=== PATIENT | male | born 1975 ===

== ENCOUNTER 2021-03-05 13:05 | Inpatient (IN) | payer MEDICAID ==
[2021-03-05] MEDS: traZODone 50 MG TAB PO SCH (21:51)
[2021-03-05] MEDS ORDERED: DIVALPROEX DR 500 MG TAB PO SCH (22:00)
[2021-03-06 07:26] LABS: Basophils # (Auto) 0.1 K/mm3 (0.0-0.1); Basophils % (Auto) 0.6 % (0.0-1.8); Eosinophils # (Auto) 0.2 K/mm3 (0.0-0.4); Eosinophils % (Auto) 2.1 % (0.0-4.3); Hematocrit 42.8 % (35.5-45.6); Hemoglobin 14.4 gm/dl (11.8-15.2); Lymphocytes # (Auto) 1.8 K/mm3 (1.2-5.4); Lymphocytes % (Auto) 19.7 % (13.4-35.0); Mean Corpuscular HGB Conc 34 % (32-34); Mean Corpuscular Volume 92 fl (84-94); Monocytes # (Auto) 0.7 K/mm3 (0.0-0.8); Monocytes % (Auto) 7.5 % (0.0-7.3); Platelet Count 332 K/mm3 (140-440); Red Blood Count 4.66 M/mm3 (3.65-5.03); Red Cell Distribution Width 15.2 % (13.2-15.2)
[2021-03-06 07:40] LABS: Alanine Aminotransferase 12 units/L (7-56); Albumin 3.7 g/dL (3.9-5); Blood Urea Nitrogen 14 mg/dL (9-20); Calcium 9.1 mg/dL (8.4-10.2); Chol/HDL Ratio 2.86 %; HDL Cholesterol 45 mg/dL (40-59); Hemolysis Index 10; LDL Cholesterol,Direct 72 mg/dL (50-130)
[2021-03-06 07:41] LABS: Hepatitis B Surface Antigen Non-Reactive (Negative); Hepatitis C Virus Antibody Non-Reactive (NonReactive)
[2021-03-06 07:45] LABS: BUN/Creatinine Ratio 20
--- NOTE | 2021-03-06 07:51 | History and Physical Report ---
GP History & Physical - History of Present Illness Date of admission: 03/05/21 Date of Examination: 03/06/21 Reason for Admission: Danger to self Chief Complaint: Bizarre Behavior History of Present Illness: The Patient is a 45 year old male with a history of schizophrenia, Bipolar, Depression, and Anxiety who was admitted from [facility] for bizarre behavior. Per ED note: " family states patient has been acting different and talking out of his head. They told EMS that he reported to the [employer] for duty and he is not in the ." In my interview with patient, patient is difficult to understand; he is incoherent and unable to answer questions. PAST PSYCHIATRIC HISTORY Diagnoses: schizophrenia, Bipolar, Depression, and Anxiety Suicide attempts or Self-harm behavior: None reported Prior psychiatric hospitalizations: Unable to assess Substance Abuse history: Unable to assess Previous psychiatric medications tried: Depakote, Zyprexa Outpatient treatment: Unable to assess PAST MEDICAL HISTORY: Knee Surgery Family Psychiatric History: Unknown SOCIAL HISTORY Marital Status: Uknown Living Arrangements: Unknown Employment Status: Unknown Access to guns/weapons: None reported Education: 9th grade History of Abuse: None reported Legal History: None reported REVIEW OF SYSTEMS Constitutional: Negative for weight loss ENT: Negative for stridor Respiratory: Negative for cough or hemoptysis All other systems reviewed and are negative MENTAL STATUS EXAMINATION General Appearance and Behavior: Age appropriate, unkempt, wearing appropriate clothes, poor eye contact Cooperation: guarded Mood: Unable to assess Affect and affective range: Unable to assess Thought Process: Unable to assess Thought Content: Not suicidal Speech: normal tone and pace, low Suicidal Ideation: Denies SI Homicidal Ideation: Denies Hallucinations: Unable to assess Delusions: Unable to assess Impulse Control: Questionable Insight and Judgment: poor insight and judgment, Memory: Unable to assess Attention: Normal Orientation: Alert, oriented to self Assessment (1)Depression Current Visit: Yes Status: Acute Treatment Plan Patient admitted for inpatient psychiatric evaluation, medication adjustment and close monitoring The patient's behavior, mood, sleep and appetite will be closely monitored. Patient enrolled in individual and group therapeutic sessions and encouraged to attend. Patient provided with a safe and structured environment. Patient's physical health needs will be addressed by the Hospitalist. Hospitalist Consulted Labs including CBC, CMP, Lipid profile and Hemoglobin A1C levels ordered for baseline reference Social Assessment will be completed and the [employer] will work with patient and family to ensure a suitable and safe disposition Medication adjustment will be made as clinically indicated Restarted home medications Usual Wellness Presybeterian/Preservation: - Start Trazodone 50 mg po QHS & 50 mg po QHS PRN between 10 PM & 2 AM for insomnia - Start Melatonin 5 mg po QHS to promote circadian rhythm The patient agreed on the treatment plan, understood the risk, benefit, alternative treatment, potential consequence of no treatment, and gave informed consent. Initial Certification I certify that the inpatient psychiatric services are required for treatment that could reasonably be expected to improve the patient's condition. Estimated days: 7 Post hospital care: primary care provider, psychiatric provider Case staffed with Dr. Francisco Legal Status: Voluntary Reaction to Hospitalization: Accepting Legal Status: Voluntary Reaction to Hospitalization: Accepting Medications and Allergies Legal Status: Voluntary Reaction to Hospitalization: Accepting Medications and Allergies Allergies Allergy/AdvReac Type Severity Reaction Status Date / Time No Known Allergies Allergy Verified 03/06/21 00:10 Home Medications Medication Instructions Recorded Confirmed Last Taken Type Divalproex ER [DepaKOTE ER] 500 mg PO BID 03/05/21 03/05/21 Unknown History OLANzapine [ZyPREXA] 10 mg PO QHS 03/05/21 03/05/21 Unknown History Quetiapine Fumarate [SEROquel] 300 mg PO BID 03/06/21 03/06/21 Unknown History Active Meds: Active Medications Divalproex Sodium (Divalproex Dr 500 Mg Tab) 500 mg PO BID [facility] Last Admin: 03/05/21 21:51 Dose: 500 mg Documented by: Olanzapine (Olanzapine 10 Mg Tab) 10 mg PO [facility] Last Admin: 03/05/21 21:51 Dose: 10 mg Documented by: Trazodone HCl (Trazodone 50 Mg Tab) 50 mg PO QHS [facility] Last Admin: 03/05/21 21:51 Dose: 50 mg Documented by: Results - Results Labs/Vitals: Last Vital Signs Temp 97.5 F L 03/05/21 22:00 Pulse 89 03/05/21 22:00 Resp 18 03/05/21 22:00 BP 126/72 03/05/21 22:00 Pulse Ox 96 03/05/21 22:00 Physical Examination - Constitutional Vitals: Vital Signs Temp Pulse Resp BP Pulse Ox 97.5 F L 89 18 126/72 96 03/05/21 22:00 03/05/21 22:00 03/05/21 22:00 03/05/21 22:00 03/05/21 22:00 Temperature -Last 24 Hours Temperature 97.5 F Mental Status Exam - Vital signs Last Vital Signs Temp 97.5 F L 03/05/21 22:00 Pulse 89 03/05/21 22:00 Resp 18 03/05/21 22:00 BP 126/72 03/05/21 22:00 Pulse Ox 96 03/05/21 22:00 Physician Certification - Certification Statement Physician Certification Statement: This is an acknowledgement statement that HAWA COOK is a 45 year old M who requires inpatient psychiatric admission for treatment which could reasonably be expected to improve the patient's condition for Estimated period of time patient will need to remain in the hospital: [ ] Plan for post-hospital care: [ ]
[2021-03-06] MEDS: DIVALPROEX ER 500 MG TAB PO SCH ×2 (09:58→21:02)
[2021-03-06] MEDS ORDERED: LORazepam 1 MG TAB PO ONE (20:00)
[2021-03-06] MEDS: traZODone 50 MG TAB PO SCH (21:03)
--- NOTE | 2021-03-07 08:53 | Progress Note ---
Subjective Date of service: 03/07/21 Subjective Comment: 03/07/2021: I interviewed the patient this morning. Medical records reviewed and patient's progress was discussed with unit staff. Nursing staff reports that patient " Last evening the patient presented as psychotic. He would yell loudly and hold his arms and hands up into the air. He would be talking to himself. LANDSCAPE SUPERVISOR was called and pt was given one time Ativan 1 mg po. It assisted pt in calming further. He denies si/hi. His appetite is good. Pt would at times pound on the diaz with his fists but was never aggressive to anyone else. Overnight patient rested quietly. He slept 8 hours. Will continue to monitor patient for safety." In my interview with the patient this morning, the patient was seen in the activity room eating breakfast. He reports mood as "Alright". Appetite is good. Sleep last night was good. The patient denies any current suicidal/homicidal ideation and denies hallucination. No changes made to treatment plan today. REVIEW OF SYSTEMS Constitutional: Negative for weight loss ENT: Negative for stridor Respiratory: Negative for cough or hemoptysis All other systems reviewed and are negative MENTAL STATUS EXAMINATION General Appearance and Behavior: Age appropriate, unkempt, wearing appropriate clothes, poor eye contact Cooperation: Cooperative Mood: "Alright" Affect and affective range: congruent with stated mood Thought Process: Not SI Thought Content: Not suicidal Speech: normal tone and pace, low Suicidal Ideation: Denies SI Homicidal Ideation: Denies Hallucinations: Denies Delusions: Denies Impulse Control: Questionable Insight and Judgment: poor insight and judgment, Memory: Normal Attention: Normal Orientation: Alert, oriented to self Assessment (1)Paranoid Schizophrenia Current Visit: Yes Status: Acute Treatment Plan Patient admitted for inpatient psychiatric evaluation, medication adjustment and close monitoring The patient's behavior, mood, sleep and appetite will be closely monitored. Patient enrolled in individual and group therapeutic sessions and encouraged to attend. Patient provided with a safe and structured environment. Patient's physical health needs will be addressed by the Hospitalist. Hospitalist Consulted Labs including CBC, CMP, Lipid profile and Hemoglobin A1C levels ordered for baseline reference Social Assessment will be completed and the Lab Rn will work with patient and family to ensure a suitable and safe disposition Medication adjustment will be made as clinically indicated No changes today Restarted home medications Usual Wellness Advent/Preservation: - Start Trazodone 50 mg po QHS & 50 mg po QHS PRN between 10 PM & 2 AM for insomnia - Start Melatonin 5 mg po QHS to promote circadian rhythm The patient agreed on the treatment plan, understood the risk, benefit, alternative treatment, potential consequence of no treatment, and gave informed consent. Initial Certification I certify that the inpatient psychiatric services are required for treatment that could reasonably be expected to improve the patient's condition. Estimated days: 7 Post hospital care: primary care provider, psychiatric provider Case staffed with Dr. Francisco Legal Status: Voluntary Reaction to Hospitalization: Accepting Legal Status: Voluntary Reaction to Hospitalization: Accepting Medications and Allergies Medications and Allergies Allergies Allergy/AdvReac Type Severity Reaction Status Date / Time No Known Allergies Allergy Verified 03/06/21 00:10 Home Medications Medication Instructions Recorded Confirmed Last Taken Type Divalproex ER [DepaKOTE ER] 500 mg PO BID 03/05/21 03/05/21 Unknown History OLANzapine [ZyPREXA] 10 mg PO QHS 03/05/21 03/05/21 Unknown History Quetiapine Fumarate [SEROquel] 300 mg PO BID 03/06/21 03/06/21 Unknown History Active Meds: Active Medications Divalproex Sodium (Divalproex Er 500 Mg Tab) 500 mg PO BID [facility] OF [facility] Last Admin: 03/06/21 21:02 Dose: 500 mg Documented by: Olanzapine (Olanzapine 10 Mg Tab) 10 mg PO HS [facility] Last Admin: 03/06/21 21:03 Dose: 10 mg Documented by: Trazodone HCl (Trazodone 50 Mg Tab) 50 mg PO QHS [facility] Last Admin: 03/06/21 21:03 Dose: 50 mg Documented by: Results - Results Labs/Vitals: Laboratory Last Values WBC 9.2 K/mm3 (4.5-11.0) 03/06/21 06:55 RBC 4.66 M/mm3 (3.65-5.03) 03/06/21 06:55 Hgb 14.4 gm/dl (11.8-15.2) 03/06/21 06:55 Hct 42.8 % (35.5-45.6) 03/06/21 06:55 MCV 92 fl (84-94) 03/06/21 06:55 MCH 31 pg (28-32) 03/06/21 06:55 MCHC 34 % (32-34) 03/06/21 06:55 RDW 15.2 % (13.2-15.2) 03/06/21 06:55 Plt Count 332 K/mm3 (140-440) 03/06/21 06:55 Lymph % (Auto) 19.7 % (13.4-35.0) 03/06/21 06:55 Bee % (Auto) 7.5 % (0.0-7.3) H 03/06/21 06:55 Eos % (Auto) 2.1 % (0.0-4.3) 03/06/21 06:55 Baso % (Auto) 0.6 % (0.0-1.8) 03/06/21 06:55 Lymph # (Auto) 1.8 K/mm3 (1.2-5.4) 03/06/21 06:55 Bee # (Auto) 0.7 K/mm3 (0.0-0.8) 03/06/21 06:55 Eos # (Auto) 0.2 K/mm3 (0.0-0.4) 03/06/21 06:55 Baso # (Auto) 0.1 K/mm3 (0.0-0.1) 03/06/21 06:55 Seg Neutrophils % 70.1 % (40.0-70.0) H 03/06/21 06:55 Seg Neutrophils # 6.5 K/mm3 (1.8-7.7) 03/06/21 06:55 Sodium 138 mmol/L (137-145) 03/06/21 06:55 Potassium 4.1 mmol/L (3.6-5.0) 03/06/21 06:55 Chloride 101.5 mmol/L (98-107) 03/06/21 06:55 Carbon Dioxide 25 mmol/L (22-30) 03/06/21 06:55 Anion Gap 16 mmol/L 03/06/21 06:55 BUN 14 mg/dL (9-20) 03/06/21 06:55 Creatinine 0.7 mg/dL (0.8-1.3) L 03/06/21 06:55 Estimated GFR > 60 ml/min 03/06/21 06:55 BUN/Creatinine Ratio 20 % 03/06/21 06:55 Glucose 90 mg/dL (75-100) 03/06/21 06:55 Hemoglobin A1c 6.0 % (4-6) 03/06/21 06:55 Calcium 9.1 mg/dL (8.4-10.2) 03/06/21 06:55 Total Bilirubin 0.50 mg/dL (0.1-1.2) 03/06/21 06:55 AST 23 units/L (5-40) 03/06/21 06:55 ALT 12 units/L (7-56) 03/06/21 06:55 Alkaline Phosphatase < 5 units/L (35-129) L 03/06/21 06:55 Total Protein 6.7 g/dL (6.3-8.2) 03/06/21 06:55 Albumin 3.7 g/dL (3.9-5) L 03/06/21 06:55 Albumin/Globulin Ratio 1.2 % 03/06/21 06:55 Triglycerides 108 mg/dL (2-149) 03/06/21 06:55 Cholesterol 129 mg/dL (50-199) 03/06/21 06:55 LDL Cholesterol Direct 72 mg/dL (50-130) 03/06/21 06:55 HDL Cholesterol 45 mg/dL (40-59) 03/06/21 06:55 Cholesterol/HDL Ratio 2.86 % 03/06/21 06:55 TSH 0.951 mlU/mL (0.270-4.200) 03/06/21 06:55 Hepatitis A IgM Ab Non-reactive (NonReactive) 03/06/21 06:55 Hep Bs Antigen Non-reactive (Negative) 03/06/21 06:55 Hep B Core IgM Ab Non-reactive (NonReactive) 03/06/21 06:55 Hepatitis C Antibody Non-reactive (NonReactive) 03/06/21 06:55 Last Vital Signs Temp 97.6 F 03/07/21 00:16 Pulse 100 H 03/07/21 00:16 Resp 16 03/07/21 00:16 BP 129/70 03/07/21 00:16 Pulse Ox 100 03/07/21 00:16
[2021-03-07] MEDS: DIVALPROEX ER 500 MG TAB PO SCH ×2 (09:54→22:13)
--- NOTE | 2021-03-07 13:15 | Consultation ---
History of Present Illness - Reason for Consult Consult date: 03/07/21 Medical management Requesting physician: JONO COREA - History of Present Illness 45 YO Male with JANNA, Schizophrenia admitted to [facility] for psychiatric stabilization. Consult placed by Dr. Corea for medical management. Patient seen and evaluated in his room. Patient denies fever, chills, chest pain, palpitation, productive cough, skin rash, recent ill contact, or known exposure to COVID-19. No reported nursing events. Past History Past Medical History: other (See HPI) Past Surgical History: Other (Knee surgery) Social history: single. denies: smoking, alcohol abuse, prescription drug abuse Family history: hypertension Medications and Allergies Allergies Allergy/AdvReac Type Severity Reaction Status Date / Time No Known Allergies Allergy Verified 03/06/21 00:10 Home Medications Medication Instructions Recorded Confirmed Last Taken Type OLANzapine [Zyprexa] 10 mg PO QHS 03/05/21 03/05/[address] [Depakote Dr] 500 mg PO TID 30 Days #90 tablet 03/11/21 Unknown Rx OLANzapine [Zyprexa] 10 mg PO HS 30 Days #30 tablet 03/11/21 Unknown Rx hydrOXYzine PAMOATE [Vistaril] 50 mg PO TID 30 Days #90 capsule 03/11/21 Unknown Rx traZODone [Desyrel] 50 mg PO QHS 30 Days #30 tablet 03/11/21 Unknown Rx Active Meds: Active Medications Divalproex Sodium (Divalproex Er 500 Mg Tab) 500 mg PO BID [facility] Last Admin: 03/07/21 09:54 Dose: 500 mg Documented by: Lorazepam (Lorazepam 1 Mg Tab) 1 mg PO Q6H PRN PRN Reason: Agitation Olanzapine (Olanzapine 10 Mg Tab) 10 mg PO HS [facility] Last Admin: 03/06/21 21:03 Dose: 10 mg Documented by: Trazodone HCl (Trazodone 50 Mg Tab) 50 mg PO QHS [facility] Last Admin: 03/06/21 21:03 Dose: 50 mg Documented by: Review of Systems Constitutional: no weight loss, no weight gain, no fever, no sweats Ears, nose, mouth and throat: no ear discharge, no tinnitis, no nose pain, no nasal congestion, no nasal discharge Cardiovascular: no chest pain, no palpitations, no edema, no syncope Respiratory: no cough, no shortness of breath, no dyspnea on exertion Gastrointestinal: no abdominal pain, no vomiting, no diarrhea, no constipation, no change in bowel habits Genitourinary Male: no hematuria, no flank pain, no discharge, no urinary hesitancy, no nocturia Rectal: no pain, no bleeding Musculoskeletal: no neck stiffness, no neck pain, no arm numbness/tingling, no shooting leg pain Integumentary: no rash, no redness, no wounds, no jaundice Neurological: no transient paralysis, no weakness, no numbness, no seizures Psychiatric: depression, hopelessness, mood swings Endocrine: no cold intolerance, no heat intolerance, no polyphagia, no excessive thirst, no polyuria Hematologic/Lymphatic: no easy bruising, no lymphedema Allergic/Immunologic: no urticaria, no angioedema Exam - Constitutional Vitals: Temp Pulse Resp BP Pulse Ox 97.4 F L 82 20 117/66 96 03/07/21 08:40 03/07/21 08:40 03/07/21 08:40 03/07/21 08:40 03/07/21 08:40 General appearance: Present: no acute distress, well-nourished - EENT Eyes: Present: PERRL ENT: hearing intact, clear oral mucosa - Neck Neck: Present: supple, normal ROM - Respiratory Respiratory effort: normal Respiratory: bilateral: CTA - Cardiovascular Heart Sounds: Present: S1 & S2. Absent: rub, click - Extremities Extremities: pulses symmetrical, No edema Peripheral Pulses: within normal limits - Abdominal General gastrointestinal: Present: soft, non-tender, non-distended, normal bowel sounds Male genitourinary: Present: normal - Integumentary Integumentary: Present: clear, warm, dry - Musculoskeletal Musculoskeletal: gait normal, strength equal bilaterally - Psychiatric Psychiatric: appropriate mood/affect, intact judgment & insight - Neurologic Neurologic: CNII-XII intact, moves all extremities Results - Labs CBC & Chem 7: 03/06/21 06:55 03/06/21 06:55 Assessment and Plan - Patient Problems (1) Depression Status: Acute Plan to address problem: Continue medical management as per primary team. (2) Generalized anxiety disorder Status: Acute Plan to address problem: Benzodiazepine therapy as clinically indicated, supportive care.
[2021-03-07] MEDS: LORazepam 1 MG TAB PO PRN ×2 (14:29→22:44)
[2021-03-07] MEDS: traZODone 50 MG TAB PO SCH (22:13)
--- NOTE | 2021-03-08 07:43 | Progress Note ---
Subjective Date of service: 03/08/21 Subjective Comment: 03/07/2021: I interviewed the patient this morning. Medical records reviewed and patient's progress was discussed with unit staff. Nursing staff reports that patient " Last evening the patient presented as psychotic. He would yell loudly and hold his arms and hands up into the air. He would be talking to himself. PLACEMENT ASSISTANT was called and pt was given one time Ativan 1 mg po. It assisted pt in calming further. He denies si/hi. His appetite is good. Pt would at times pound on the diaz with his fists but was never aggressive to anyone else. Overnight patient rested quietly. He slept 8 hours. Will continue to monitor patient for safety." In my interview with the patient this morning, the patient was seen in the activity room eating breakfast. He reports mood as "Alright". Appetite is good. Sleep last night was good. The patient denies any current suicidal/homicidal ideation and denies hallucination. No changes made to treatment plan today. 03/08/2021: The patient was seen in the activity room. Per nurse: "Patient with hyperactive behaviors responding to internal stimuli by yelling banging on wall in room, PRN Ativan given, medication was effective, patent rested for during the night, will continue to monitor." In my interview with the patient, he is calm and reports doing fine. He states sleep and appetite as good. He denies any current suicidal/homicidal thoughts and denies hallucinations. No changes to the treatment plan today. REVIEW OF SYSTEMS Constitutional: Negative for weight loss ENT: Negative for stridor Respiratory: Negative for cough or hemoptysis All other systems reviewed and are negative MENTAL STATUS EXAMINATION General Appearance and Behavior: Age appropriate, unkempt, wearing appropriate clothes, poor eye contact Cooperation: Cooperative Mood: "Normal" Affect and affective range: congruent with stated mood Thought Process: Not SI Thought Content: Not suicidal Speech: normal tone and pace, low Suicidal Ideation: Denies SI Homicidal Ideation: Denies Hallucinations: Denies Delusions: Denies Impulse Control: Questionable Insight and Judgment: poor insight and judgment, Memory: Normal Attention: Normal Orientation: Alert, oriented to self Assessment (1)Paranoid Schizophrenia Current Visit: Yes Status: Acute Treatment Plan Patient admitted for inpatient psychiatric evaluation, medication adjustment and close monitoring The patient's behavior, mood, sleep and appetite will be closely monitored. Patient enrolled in individual and group therapeutic sessions and encouraged to attend. Patient provided with a safe and structured environment. Patient's physical health needs will be addressed by the Hospitalist. Hospitalist Consulted Labs including CBC, CMP, Lipid profile and Hemoglobin A1C levels ordered for baseline reference Social Assessment will be completed and the Sustainable Communities Designer will work with patient and family to ensure a suitable and safe disposition Medication adjustment will be made as clinically indicated No changes today Continue Ativan 1mg po Q6 hours for agitation Continue Depakote Dr 500mg po BID Continue Zyprexa 10mg po QHS Usual Wellness Uatsdin/Preservation: - Start Trazodone 50 mg po QHS & 50 mg po QHS PRN between 10 PM & 2 AM for insomnia - Start Melatonin 5 mg po QHS to promote circadian rhythm The patient agreed on the treatment plan, understood the risk, benefit, alternative treatment, potential consequence of no treatment, and gave informed consent. Initial Certification I certify that the inpatient psychiatric services are required for treatment that could reasonably be expected to improve the patient's condition. Estimated days: 7 Post hospital care: primary care provider, psychiatric provider Case staffed with Dr. Francisco Legal Status: Voluntary Reaction to Hospitalization: Accepting Legal Status: Voluntary Medications and Allergies Allergies Allergy/AdvReac Type Severity Reaction Status Date / Time No Known Allergies Allergy Verified 03/06/21 00:10 Home Medications Medication Instructions Recorded Confirmed Last Taken Type Divalproex ER [DepaKOTE ER] 500 mg PO BID 03/05/21 03/05/21 Unknown History OLANzapine [ZyPREXA] 10 mg PO QHS 03/05/21 03/05/21 Unknown History Quetiapine Fumarate [SEROquel] 300 mg PO BID 03/06/21 03/06/21 Unknown History Active Meds: Active Medications Divalproex Sodium (Divalproex Er 500 Mg Tab) 500 mg PO BID [facility] Last Admin: 03/07/21 22:13 Dose: 500 mg Documented by: Lorazepam (Lorazepam 1 Mg Tab) 1 mg PO Q6H PRN PRN Reason: Agitation Last Admin: 03/07/21 22:44 Dose: 1 mg Documented by: Olanzapine (Olanzapine 10 Mg Tab) 10 mg PO HS [facility] Last Admin: 03/07/21 22:13 Dose: 10 mg Documented by: Trazodone HCl (Trazodone 50 Mg Tab) 50 mg PO QHS [facility] Last Admin: 03/07/21 22:13 Dose: 50 mg Documented by: Results - Results Labs/Vitals: Laboratory Last Values WBC 9.2 K/mm3 (4.5-11.0) 03/06/21 06:55 RBC 4.66 M/mm3 (3.65-5.03) 03/06/21 06:55 Hgb 14.4 gm/dl (11.8-15.2) 03/06/21 06:55 Hct 42.8 % (35.5-45.6) 03/06/21 06:55 MCV 92 fl (84-94) 03/06/21 06:55 MCH 31 pg (28-32) 03/06/21 06:55 MCHC 34 % (32-34) 03/06/21 06:55 RDW 15.2 % (13.2-15.2) 03/06/21 06:55 Plt Count 332 K/mm3 (140-440) 03/06/21 06:55 Lymph % (Auto) 19.7 % (13.4-35.0) 03/06/21 06:55 [place] % (Auto) 7.5 % (0.0-7.3) H 03/06/21 06:55 Eos % (Auto) 2.1 % (0.0-4.3) 03/06/21 06:55 Baso % (Auto) 0.6 % (0.0-1.8) 03/06/21 06:55 Lymph # (Auto) 1.8 K/mm3 (1.2-5.4) 03/06/21 06:55 [place] # (Auto) 0.7 K/mm3 (0.0-0.8) 03/06/21 06:55 Eos # (Auto) 0.2 K/mm3 (0.0-0.4) 03/06/21 06:55 Baso # (Auto) 0.1 K/mm3 (0.0-0.1) 03/06/21 06:55 Seg Neutrophils % 70.1 % (40.0-70.0) H 03/06/21 06:55 Seg Neutrophils # 6.5 K/mm3 (1.8-7.7) 03/06/21 06:55 Sodium 138 mmol/L (137-145) 03/06/21 06:55 Potassium 4.1 mmol/L (3.6-5.0) 03/06/21 06:55 Chloride 101.5 mmol/L (98-107) 03/06/21 06:55 Carbon Dioxide 25 mmol/L (22-30) 03/06/21 06:55 Anion Gap 16 mmol/L 03/06/21 06:55 BUN 14 mg/dL (9-20) 03/06/21 06:55 Creatinine 0.7 mg/dL (0.8-1.3) L 03/06/21 06:55 Estimated GFR > 60 ml/min 03/06/21 06:55 BUN/Creatinine Ratio 20 % 03/06/21 06:55 Glucose 90 mg/dL (75-100) 03/06/21 06:55 Hemoglobin A1c 6.0 % (4-6) 03/06/21 06:55 Calcium 9.1 mg/dL (8.4-10.2) 03/06/21 06:55 Total Bilirubin 0.50 mg/dL (0.1-1.2) 03/06/21 06:55 AST 23 units/L (5-40) 03/06/21 06:55 ALT 12 units/L (7-56) 03/06/21 06:55 Alkaline Phosphatase < 5 units/L (35-129) L 03/06/21 06:55 Total Protein 6.7 g/dL (6.3-8.2) 03/06/21 06:55 Albumin 3.7 g/dL (3.9-5) L 03/06/21 06:55 Albumin/Globulin Ratio 1.2 % 03/06/21 06:55 Triglycerides 108 mg/dL (2-149) 03/06/21 06:55 Cholesterol 129 mg/dL (50-199) 03/06/21 06:55 LDL Cholesterol Direct 72 mg/dL (50-130) 03/06/21 06:55 HDL Cholesterol 45 mg/dL (40-59) 03/06/21 06:55 Cholesterol/HDL Ratio 2.86 % 03/06/21 06:55 TSH 0.951 mlU/mL (0.270-4.200) 03/06/21 06:55 Hepatitis A IgM Ab Non-reactive (NonReactive) 03/06/21 06:55 Hep Bs Antigen Non-reactive (Negative) 03/06/21 06:55 Hep B Core IgM Ab Non-reactive (NonReactive) 03/06/21 06:55 Hepatitis C Antibody Non-reactive (NonReactive) 03/06/21 06:55 Last Vital Signs Temp 97.5 F L 03/07/21 19:40 Pulse 80 03/07/21 19:40 Resp 16 03/07/21 19:40 BP 122/76 03/07/21 19:40 Pulse Ox 98 03/07/21 19:40
[2021-03-08] MEDS: DIVALPROEX ER 500 MG TAB PO SCH ×2 (09:07→21:01)
[2021-03-08] MEDS: LORazepam 1 MG TAB PO PRN ×2 (11:04→23:10)
[2021-03-08] MEDS ORDERED: ZIPRASIDONE MESYLATE 20 MG VIAL IM PRN (14:00)
[2021-03-08] MEDS ORDERED: WATER FOR INJ Sterile (PF) 10 ML ONE (17:45)
[2021-03-08] MEDS: traZODone 50 MG TAB PO SCH (21:01)
--- NOTE | 2021-03-09 07:50 | Progress Note ---
Subjective Date of service: 03/09/21 Subjective Comment: 03/07/2021: I interviewed the patient this morning. Medical records reviewed and patient's progress was discussed with unit staff. Nursing staff reports that patient " Last evening the patient presented as psychotic. He would yell loudly and hold his arms and hands up into the air. He would be talking to himself. GROUNDS CLEANER was called and pt was given one time Ativan 1 mg po. It assisted pt in calming further. He denies si/hi. His appetite is good. Pt would at times pound on the diaz with his fists but was never aggressive to anyone else. Overnight patient rested quietly. He slept 8 hours. Will continue to monitor patient for safety." In my interview with the patient this morning, the patient was seen in the activity room eating breakfast. He reports mood as "Alright". Appetite is good. Sleep last night was good. The patient denies any current suicidal/homicidal ideation and denies hallucination. No changes made to treatment plan today. 03/08/2021: The patient was seen in the activity room. Per nurse: "Patient with hyperactive behaviors responding to internal stimuli by yelling banging on wall in room, PRN Ativan given, medication was effective, patent rested for during the night, will continue to monitor." In my interview with the patient, he is calm and reports doing fine. He states sleep and appetite as good. He denies any current suicidal/homicidal thoughts and denies hallucinations. No changes to the treatment plan today. 03/09/2021: The patient was seen eating breakfast in the activity room. He reports mood as "good" He reports sleep and appetite as good. The patient denies any current suicidal ideation and denies hallucinations. Per nurse " pt spent last evening in activity room watching television, pt is alert and oriented x3, disorganized thought process, cooperative, able to make needs known, responds to internal stimuli, observed talking to himself, he is medication compliance, ativan 1mg po given for mild agitation, pt was pacing the hallway with anxious look, good appetite, slept for approximately 8hrs, no distress noted, will continue to monitor for safety." Changes Made today: Start Depakote Dr 500mg po TID; Start Vistaril 25mg po TID. REVIEW OF SYSTEMS Constitutional: Negative for weight loss ENT: Negative for stridor Respiratory: Negative for cough or hemoptysis All other systems reviewed and are negative MENTAL STATUS EXAMINATION General Appearance and Behavior: Age appropriate, unkempt, wearing appropriate clothes, poor eye contact Cooperation: Cooperative Mood: "good" Affect and affective range: congruent with stated mood Thought Process: Not SI Thought Content: Not suicidal Speech: normal tone and pace, low Suicidal Ideation: Denies SI Homicidal Ideation: Denies Hallucinations: Denies Delusions: Denies Impulse Control: Questionable Insight and Judgment: poor insight and judgment, Memory: Normal Attention: Normal Orientation: Alert, oriented to self Assessment (1)Paranoid Schizophrenia Current Visit: Yes Status: Acute Treatment Plan Patient admitted for inpatient psychiatric evaluation, medication adjustment and close monitoring The patient's behavior, mood, sleep and appetite will be closely monitored. Patient enrolled in individual and group therapeutic sessions and encouraged to attend. Patient provided with a safe and structured environment. Patient's physical health needs will be addressed by the Hospitalist. Hospitalist Consulted Labs including CBC, CMP, Lipid profile and Hemoglobin A1C levels ordered for baseline reference Social Assessment will be completed and the Termite Control Technician will work with patient and family to ensure a suitable and safe disposition Medication adjustment will be made as clinically indicated Continue Ativan 1mg po Q6 hours for agitation Start Depakote Dr 500mg po TID Start Vistaril 25mg po TID Continue Zyprexa 10mg po QHS Usual Wellness Congregation/Preservation: - Start Trazodone 50 mg po QHS & 50 mg po QHS PRN between 10 PM & 2 AM for insomnia - Start Melatonin 5 mg po QHS to promote circadian rhythm The patient agreed on the treatment plan, understood the risk, benefit, alternative treatment, potential consequence of no treatment, and gave informed consent. Initial Certification I certify that the inpatient psychiatric services are required for treatment that could reasonably be expected to improve the patient's condition. Estimated days: 7 Post hospital care: primary care provider, psychiatric provider Case staffed with Dr. Francisco Legal Status: Voluntary Reaction to Hospitalization: Accepting Legal Status: Voluntary Medications and Allergies Allergies Allergy/AdvReac Type Severity Reaction Status Date / Time No Known Allergies Allergy Verified 03/06/21 00:10 Home Medications Medication Instructions Recorded Confirmed Last Taken Type Divalproex ER [DepaKOTE ER] 500 mg PO BID 03/05/21 03/05/21 Unknown History OLANzapine [ZyPREXA] 10 mg PO QHS 03/05/21 03/05/21 Unknown History Quetiapine Fumarate [SEROquel] 300 mg PO BID 03/06/21 03/06/21 Unknown History Active Meds: Active Medications Divalproex Sodium (Divalproex Er 500 Mg Tab) 500 mg PO BID [facility] Last Admin: 03/08/21 21:01 Dose: 500 mg Documented by: Hydroxyzine Pamoate (Hydroxyzine Pamoate 25 Mg Cap) 25 mg PO TID [facility] Lorazepam (Lorazepam 1 Mg Tab) 1 mg PO Q6H PRN PRN Reason: Agitation Last Admin: 03/08/21 23:10 Dose: 1 mg Documented by: Olanzapine (Olanzapine 10 Mg Tab) 10 mg PO HS [facility] Last Admin: 03/08/21 21:01 Dose: 10 mg Documented by: Trazodone HCl (Trazodone 50 Mg Tab) 50 mg PO QHS [facility] Last Admin: 03/08/21 21:01 Dose: 50 mg Documented by: Ziprasidone (Ziprasidone Mesylate 20 Mg Vial) 20 mg IM Q6HR PRN PRN Reason: Agitation Stop: 03/09/21 13:59 Last Admin: 03/08/21 17:47 Dose: 20 mg Documented by: Results - Results Labs/Vitals: Laboratory Last Values WBC 9.2 K/mm3 (4.5-11.0) 03/06/21 06:55 RBC 4.66 M/mm3 (3.65-5.03) 03/06/21 06:55 Hgb 14.4 gm/dl (11.8-15.2) 03/06/21 06:55 Hct 42.8 % (35.5-45.6) 03/06/21 06:55 MCV 92 fl (84-94) 03/06/21 06:55 MCH 31 pg (28-32) 03/06/21 06:55 MCHC 34 % (32-34) 03/06/21 06:55 RDW 15.2 % (13.2-15.2) 03/06/21 06:55 Plt Count 332 K/mm3 (140-440) 03/06/21 06:55 Lymph % (Auto) 19.7 % (13.4-35.0) 03/06/21 06:55 [place] % (Auto) 7.5 % (0.0-7.3) H 03/06/21 06:55 Eos % (Auto) 2.1 % (0.0-4.3) 03/06/21 06:55 Baso % (Auto) 0.6 % (0.0-1.8) 03/06/21 06:55 Lymph # (Auto) 1.8 K/mm3 (1.2-5.4) 03/06/21 06:55 [place] # (Auto) 0.7 K/mm3 (0.0-0.8) 03/06/21 06:55 Eos # (Auto) 0.2 K/mm3 (0.0-0.4) 03/06/21 06:55 Baso # (Auto) 0.1 K/mm3 (0.0-0.1) 03/06/21 06:55 Seg Neutrophils % 70.1 % (40.0-70.0) H 03/06/21 06:55 Seg Neutrophils # 6.5 K/mm3 (1.8-7.7) 03/06/21 06:55 Sodium 138 mmol/L (137-145) 03/06/21 06:55 Potassium 4.1 mmol/L (3.6-5.0) 03/06/21 06:55 Chloride 101.5 mmol/L (98-107) 03/06/21 06:55 Carbon Dioxide 25 mmol/L (22-30) 03/06/21 06:55 Anion Gap 16 mmol/L 03/06/21 06:55 BUN 14 mg/dL (9-20) 03/06/21 06:55 Creatinine 0.7 mg/dL (0.8-1.3) L 03/06/21 06:55 Estimated GFR > 60 ml/min 03/06/21 06:55 BUN/Creatinine Ratio 20 % 03/06/21 06:55 Glucose 90 mg/dL (75-100) 03/06/21 06:55 Hemoglobin A1c 6.0 % (4-6) 03/06/21 06:55 Calcium 9.1 mg/dL (8.4-10.2) 03/06/21 06:55 Total Bilirubin 0.50 mg/dL (0.1-1.2) 03/06/21 06:55 AST 23 units/L (5-40) 03/06/21 06:55 ALT 12 units/L (7-56) 03/06/21 06:55 Alkaline Phosphatase < 5 units/L (35-129) L 03/06/21 06:55 Total Protein 6.7 g/dL (6.3-8.2) 03/06/21 06:55 Albumin 3.7 g/dL (3.9-5) L 03/06/21 06:55 Albumin/Globulin Ratio 1.2 % 03/06/21 06:55 Triglycerides 108 mg/dL (2-149) 03/06/21 06:55 Cholesterol 129 mg/dL (50-199) 03/06/21 06:55 LDL Cholesterol Direct 72 mg/dL (50-130) 03/06/21 06:55 HDL Cholesterol 45 mg/dL (40-59) 03/06/21 06:55 Cholesterol/HDL Ratio 2.86 % 03/06/21 06:55 TSH 0.951 mlU/mL (0.270-4.200) 03/06/21 06:55 Hepatitis A IgM Ab Non-reactive (NonReactive) 03/06/21 06:55 Hep Bs Antigen Non-reactive (Negative) 03/06/21 06:55 Hep B Core IgM Ab Non-reactive (NonReactive) 03/06/21 06:55 Hepatitis C Antibody Non-reactive (NonReactive) 03/06/21 06:55 Last Vital Signs Temp 97.3 F L 03/08/21 19:49 Pulse 91 H 03/08/21 19:49 Resp 18 03/08/21 19:49 BP 145/91 03/08/21 19:49 Pulse Ox 99 03/08/21 19:49
[2021-03-09] MEDS: DIVALPROEX DR 500 MG TAB PO SCH ×3 (08:13→19:16)
[2021-03-09] MEDS: hydrOXYzine PAMOATE 25 MG CAP PO SCH ×2 (08:13→14:11)
[2021-03-09] MEDS: LORazepam 1 MG TAB PO PRN ×2 (12:18→19:16)
[2021-03-09] MEDS: traZODone 50 MG TAB PO SCH (21:00)
--- NOTE | 2021-03-10 08:30 | Progress Note ---
Subjective Date of service: 03/10/21 Subjective Comment: 03/07/2021: I interviewed the patient this morning. Medical records reviewed and patient's progress was discussed with unit staff. Nursing staff reports that patient " Last evening the patient presented as psychotic. He would yell loudly and hold his arms and hands up into the air. He would be talking to himself. [employer]AKER was called and pt was given one time Ativan 1 mg po. It assisted pt in calming further. He denies si/hi. His appetite is good. Pt would at times pound on the diaz with his fists but was never aggressive to anyone else. Overnight patient rested quietly. He slept 8 hours. Will continue to monitor patient for safety." In my interview with the patient this morning, the patient was seen in the activity room eating breakfast. He reports mood as "Alright". Appetite is good. Sleep last night was good. The patient denies any current suicidal/homicidal ideation and denies hallucination. No changes made to treatment plan today. 03/08/2021: The patient was seen in the activity room. Per nurse: "Patient with hyperactive behaviors responding to internal stimuli by yelling banging on wall in room, PRN Ativan given, medication was effective, patent rested for during the night, will continue to monitor." In my interview with the patient, he is calm and reports doing fine. He states sleep and appetite as good. He denies any current suicidal/homicidal thoughts and denies hallucinations. No changes to the treatment plan today. 03/09/2021: The patient was seen eating breakfast in the activity room. He reports mood as "good" He reports sleep and appetite as good. The patient denies any current suicidal ideation and denies hallucinations. Per nurse " pt spent last evening in activity room watching television, pt is alert and oriented x3, disorganized thought process, cooperative, able to make needs known, responds to internal stimuli, observed talking to himself, he is medication compliance, ativan 1mg po given for mild agitation, pt was pacing the hallway with anxious look, good appetite, slept for approximately 8hrs, no distress noted, will continue to monitor for safety." Changes Made today: Start Depakote Dr 500mg po TID; Start Vistaril 25mg po TID. 03/10/2021: The patient was seen this morning in his room. He reports doing well. When asked about his behavioral issues, he states that he has mood swings and that he gets frustrated and angry thinking about the deaths in his family. He states he is receptive to attending psychotherapy post discharge. The patient reports sleep and appetite as good. He denies any current suicidal/homicidal ideation and denies hallucinations. No changes made today. REVIEW OF SYSTEMS Constitutional: Negative for weight loss ENT: Negative for stridor Respiratory: Negative for cough or hemoptysis All other systems reviewed and are negative MENTAL STATUS EXAMINATION General Appearance and Behavior: Age appropriate, unkempt, wearing appropriate clothes, poor eye contact Cooperation: Cooperative Mood: "Ok" Affect and affective range: congruent with stated mood Thought Process: Not SI Thought Content: Not suicidal Speech: normal tone and pace, low Suicidal Ideation: Denies SI Homicidal Ideation: Denies Hallucinations: Denies Delusions: Denies Impulse Control: Questionable Insight and Judgment: poor insight and judgment, Memory: Normal Attention: Normal Orientation: Alert, oriented to self Assessment (1)Paranoid Schizophrenia Current Visit: Yes Status: Acute Treatment Plan Patient admitted for inpatient psychiatric evaluation, medication adjustment and close monitoring The patient's behavior, mood, sleep and appetite will be closely monitored. Patient enrolled in individual and group therapeutic sessions and encouraged to attend. Patient provided with a safe and structured environment. Patient's physical health needs will be addressed by the Hospitalist. Hospitalist Consulted Labs including CBC, CMP, Lipid profile and Hemoglobin A1C levels ordered for baseline reference Social Assessment will be completed and the Stitch Cleaner will work with patient and family to ensure a suitable and safe disposition Medication adjustment will be made as clinically indicated Continue Ativan 1mg po Q6 hours for agitation Continue Depakote Dr 500mg po TID Continue Vistaril 50 mg po TID Continue Zyprexa 10mg po QHS Usual Wellness Voodoo/Preservation: - Start Trazodone 50 mg po QHS & 50 mg po QHS PRN between 10 PM & 2 AM for insomnia - Start Melatonin 5 mg po QHS to promote circadian rhythm The patient agreed on the treatment plan, understood the risk, benefit, alternative treatment, potential consequence of no treatment, and gave informed consent. Initial Certification I certify that the inpatient psychiatric services are required for treatment that could reasonably be expected to improve the patient's condition. Estimated days: 7 Post hospital care: primary care provider, psychiatric provider Case staffed with Dr. Francisco Legal Status: Voluntary Reaction to Hospitalization: Accepting Legal Status: Voluntary Medications and Allergies Medications and Allergies Allergies Allergy/AdvReac Type Severity Reaction Status Date / Time No Known Allergies Allergy Verified 03/06/21 00:10 Home Medications Medication Instructions Recorded Confirmed Last Taken Type Divalproex ER [DepaKOTE ER] 500 mg PO BID 03/05/21 03/05/21 Unknown History OLANzapine [ZyPREXA] 10 mg PO QHS 03/05/21 03/05/21 Unknown History Quetiapine Fumarate [SEROquel] 300 mg PO BID 03/06/21 03/06/21 Unknown History Active Meds: Active Medications Divalproex Sodium (Divalproex Dr 500 Mg Tab) 500 mg PO TID [facility] Last Admin: 03/09/21 19:16 Dose: 500 mg Documented by: Hydroxyzine Pamoate (Hydroxyzine Pamoate 50 Mg Cap) 50 mg PO TID [facility] Last Admin: 03/09/21 19:16 Dose: 50 mg Documented by: Lorazepam (Lorazepam 1 Mg Tab) 1 mg PO Q6H PRN PRN Reason: Agitation Last Admin: 03/09/21 19:16 Dose: 1 mg Documented by: Olanzapine (Olanzapine 10 Mg Tab) 10 mg PO [facility] Last Admin: 03/09/21 21:00 Dose: 10 mg Documented by: Trazodone HCl (Trazodone 50 Mg Tab) 50 mg PO QHS [facility] Last Admin: 03/09/21 21:00 Dose: 50 mg Documented by: Results - Results Labs/Vitals: Laboratory Last Values WBC 9.2 K/mm3 (4.5-11.0) 03/06/21 06:55 RBC 4.66 M/mm3 (3.65-5.03) 03/06/21 06:55 Hgb 14.4 gm/dl (11.8-15.2) 03/06/21 06:55 Hct 42.8 % (35.5-45.6) 03/06/21 06:55 MCV 92 fl (84-94) 03/06/21 06:55 MCH 31 pg (28-32) 03/06/21 06:55 MCHC 34 % (32-34) 03/06/21 06:55 RDW 15.2 % (13.2-15.2) 03/06/21 06:55 Plt Count 332 K/mm3 (140-440) 03/06/21 06:55 Lymph % (Auto) 19.7 % (13.4-35.0) 03/06/21 06:55 [place] % (Auto) 7.5 % (0.0-7.3) H 03/06/21 06:55 Eos % (Auto) 2.1 % (0.0-4.3) 03/06/21 06:55 Baso % (Auto) 0.6 % (0.0-1.8) 03/06/21 06:55 Lymph # (Auto) 1.8 K/mm3 (1.2-5.4) 03/06/21 06:55 [place] # (Auto) 0.7 K/mm3 (0.0-0.8) 03/06/21 06:55 Eos # (Auto) 0.2 K/mm3 (0.0-0.4) 03/06/21 06:55 Baso # (Auto) 0.1 K/mm3 (0.0-0.1) 03/06/21 06:55 Seg Neutrophils % 70.1 % (40.0-70.0) H 03/06/21 06:55 Seg Neutrophils # 6.5 K/mm3 (1.8-7.7) 03/06/21 06:55 Sodium 138 mmol/L (137-145) 03/06/21 06:55 Potassium 4.1 mmol/L (3.6-5.0) 03/06/21 06:55 Chloride 101.5 mmol/L (98-107) 03/06/21 06:55 Carbon Dioxide 25 mmol/L (22-30) 03/06/21 06:55 Anion Gap 16 mmol/L 03/06/21 06:55 BUN 14 mg/dL (9-20) 03/06/21 06:55 Creatinine 0.7 mg/dL (0.8-1.3) L 03/06/21 06:55 Estimated GFR > 60 ml/min 03/06/21 06:55 BUN/Creatinine Ratio 20 % 03/06/21 06:55 Glucose 90 mg/dL (75-100) 03/06/21 06:55 Hemoglobin A1c 6.0 % (4-6) 03/06/21 06:55 Calcium 9.1 mg/dL (8.4-10.2) 03/06/21 06:55 Total Bilirubin 0.50 mg/dL (0.1-1.2) 03/06/21 06:55 AST 23 units/L (5-40) 03/06/21 06:55 ALT 12 units/L (7-56) 03/06/21 06:55 Alkaline Phosphatase < 5 units/L (35-129) L 03/06/21 06:55 Total Protein 6.7 g/dL (6.3-8.2) 03/06/21 06:55 Albumin 3.7 g/dL (3.9-5) L 03/06/21 06:55 Albumin/Globulin Ratio 1.2 % 03/06/21 06:55 Triglycerides 108 mg/dL (2-149) 03/06/21 06:55 Cholesterol 129 mg/dL (50-199) 03/06/21 06:55 LDL Cholesterol Direct 72 mg/dL (50-130) 03/06/21 06:55 HDL Cholesterol 45 mg/dL (40-59) 03/06/21 06:55 Cholesterol/HDL Ratio 2.86 % 03/06/21 06:55 TSH 0.951 mlU/mL (0.270-4.200) 03/06/21 06:55 Hepatitis A IgM Ab Non-reactive (NonReactive) 03/06/21 06:55 Hep Bs Antigen Non-reactive (Negative) 03/06/21 06:55 Hep B Core IgM Ab Non-reactive (NonReactive) 03/06/21 06:55 Hepatitis C Antibody Non-reactive (NonReactive) 03/06/21 06:55 Last Vital Signs Temp 97.3 F L 03/09/21 20:00 Pulse 90 03/09/21 20:00 Resp 16 03/09/21 20:00 BP 133/81 03/09/21 20:00 Pulse Ox 100 03/09/21 20:00
[2021-03-10] MEDS: DIVALPROEX DR 500 MG TAB PO SCH ×3 (09:28→20:39)
[2021-03-10] MEDS: LORazepam 1 MG TAB PO PRN ×2 (09:28→21:27)
[2021-03-10] MEDS: traZODone 50 MG TAB PO SCH (21:16)
--- NOTE | 2021-03-11 08:01 | Progress Note ---
Subjective Date of service: 03/11/21 Subjective Comment: 03/07/2021: I interviewed the patient this morning. Medical records reviewed and patient's progress was discussed with unit staff. Nursing staff reports that patient " Last evening the patient presented as psychotic. He would yell loudly and hold his arms and hands up into the air. He would be talking to himself. AERIAL APPLICATOR PILOT was called and pt was given one time Ativan 1 mg po. It assisted pt in calming further. He denies si/hi. His appetite is good. Pt would at times pound on the diaz with his fists but was never aggressive to anyone else. Overnight patient rested quietly. He slept 8 hours. Will continue to monitor patient for safety." In my interview with the patient this morning, the patient was seen in the activity room eating breakfast. He reports mood as "Alright". Appetite is good. Sleep last night was good. The patient denies any current suicidal/homicidal ideation and denies hallucination. No changes made to treatment plan today. 03/08/2021: The patient was seen in the activity room. Per nurse: "Patient with hyperactive behaviors responding to internal stimuli by yelling banging on wall in room, PRN Ativan given, medication was effective, patent rested for during the night, will continue to monitor." In my interview with the patient, he is calm and reports doing fine. He states sleep and appetite as good. He denies any current suicidal/homicidal thoughts and denies hallucinations. No changes to the treatment plan today. 03/09/2021: The patient was seen eating breakfast in the activity room. He reports mood as "good" He reports sleep and appetite as good. The patient denies any current suicidal ideation and denies hallucinations. Per nurse " pt spent last evening in activity room watching television, pt is alert and oriented x3, disorganized thought process, cooperative, able to make needs known, responds to internal stimuli, observed talking to himself, he is medication compliance, ativan 1mg po given for mild agitation, pt was pacing the hallway with anxious look, good appetite, slept for approximately 8hrs, no distress noted, will continue to monitor for safety." Changes Made today: Start Depakote Dr 500mg po TID; Start Vistaril 25mg po TID. 03/10/2021: The patient was seen this morning in his room. He reports doing well. When asked about his behavioral issues, he states that he has mood swings and that he gets frustrated and angry thinking about the deaths in his family. He states he is receptive to attending psychotherapy post discharge. The patient reports sleep and appetite as good. He denies any current suicidal/homicidal ideation and denies hallucinations. No changes made today. 03/11/2021: The patient was seen eating breakfast in the activity room. He reports doing well. States sleep and appetite as good. He denies any current suicidal/ homicidal ideation and denies hallucinations. Per nurse, "pt is complaint with medication, continues to respond loudly to internal stimuli, not aggressive, good appetite, slept for 8hrs, no distress noted, will continue to monitor for safety." No changes made today REVIEW OF SYSTEMS Constitutional: Negative for weight loss ENT: Negative for stridor Respiratory: Negative for cough or hemoptysis All other systems reviewed and are negative MENTAL STATUS EXAMINATION General Appearance and Behavior: Age appropriate, unkempt, wearing appropriate clothes, poor eye contact Cooperation: Cooperative Mood: "Good" Affect and affective range: congruent with stated mood Thought Process: Not SI Thought Content: Not suicidal Speech: normal tone and pace, low Suicidal Ideation: Denies SI Homicidal Ideation: Denies Hallucinations: Denies Delusions: Denies Impulse Control: Questionable Insight and Judgment: poor insight and judgment, Memory: Normal Attention: Normal Orientation: Alert, oriented to self Assessment (1)Paranoid Schizophrenia Current Visit: Yes Status: Acute Treatment Plan Patient admitted for inpatient psychiatric evaluation, medication adjustment and close monitoring The patient's behavior, mood, sleep and appetite will be closely monitored. Patient enrolled in individual and group therapeutic sessions and encouraged to attend. Patient provided with a safe and structured environment. Patient's physical health needs will be addressed by the Hospitalist. Hospitalist Consulted Labs including CBC, CMP, Lipid profile and Hemoglobin A1C levels ordered for baseline reference Social Assessment will be completed and the Video Player Mechanic will work with patient and family to ensure a suitable and safe disposition Medication adjustment will be made as clinically indicated No changes made Continue Ativan 1mg po Q6 hours for agitation Continue Depakote Dr 500mg po TID Continue Vistaril 50 mg po TID Continue Zyprexa 10mg po QHS Usual Wellness Sikhism/Preservation: - Start Trazodone 50 mg po QHS & 50 mg po QHS PRN between 10 PM & 2 AM for insomnia - Start Melatonin 5 mg po QHS to promote circadian rhythm The patient agreed on the treatment plan, understood the risk, benefit, alternative treatment, potential consequence of no treatment, and gave informed consent. Initial Certification I certify that the inpatient psychiatric services are required for treatment that could reasonably be expected to improve the patient's condition. Estimated days: 7 Post hospital care: primary care provider, psychiatric provider Case staffed with Dr. Francisco Legal Status: Voluntary Reaction to Hospitalization: Accepting Legal Status: Voluntary Medications and Allergies Allergies Allergy/AdvReac Type Severity Reaction Status Date / Time No Known Allergies Allergy Verified 03/06/21 00:10 Home Medications Medication Instructions Recorded Confirmed Last Taken Type Divalproex ER [DepaKOTE ER] 500 mg PO BID 03/05/21 03/05/21 Unknown History OLANzapine [ZyPREXA] 10 mg PO QHS 03/05/21 03/05/21 Unknown History Quetiapine Fumarate [SEROquel] 300 mg PO BID 03/06/21 03/06/21 Unknown History Active Meds: Active Medications Divalproex Sodium (Divalproex Dr 500 Mg Tab) 500 mg PO TID COUNT INCLUDES THE [facility] Last Admin: 03/10/21 20:39 Dose: 500 mg Documented by: Hydroxyzine Pamoate (Hydroxyzine Pamoate 50 Mg Cap) 50 mg PO TID COUNT INCLUDES THE [facility] Last Admin: 03/10/21 20:39 Dose: 50 mg Documented by: Lorazepam (Lorazepam 1 Mg Tab) 1 mg PO Q6H PRN PRN Reason: Agitation Last Admin: 03/10/21 21:27 Dose: 1 mg Documented by: Olanzapine (Olanzapine 10 Mg Tab) 10 mg PO [facility] Last Admin: 03/10/21 21:16 Dose: 10 mg Documented by: Trazodone HCl (Trazodone 50 Mg Tab) 50 mg PO QHS COUNT INCLUDES THE [facility] Last Admin: 03/10/21 21:16 Dose: 50 mg Documented by: Results - Results Labs/Vitals: Laboratory Last Values WBC 9.2 K/mm3 (4.5-11.0) 03/06/21 06:55 RBC 4.66 M/mm3 (3.65-5.03) 03/06/21 06:55 Hgb 14.4 gm/dl (11.8-15.2) 03/06/21 06:55 Hct 42.8 % (35.5-45.6) 03/06/21 06:55 MCV 92 fl (84-94) 03/06/21 06:55 MCH 31 pg (28-32) 03/06/21 06:55 MCHC 34 % (32-34) 03/06/21 06:55 RDW 15.2 % (13.2-15.2) 03/06/21 06:55 Plt Count 332 K/mm3 (140-440) 03/06/21 06:55 Lymph % (Auto) 19.7 % (13.4-35.0) 03/06/21 06:55 [place] % (Auto) 7.5 % (0.0-7.3) H 03/06/21 06:55 Eos % (Auto) 2.1 % (0.0-4.3) 03/06/21 06:55 Baso % (Auto) 0.6 % (0.0-1.8) 03/06/21 06:55 Lymph # (Auto) 1.8 K/mm3 (1.2-5.4) 03/06/21 06:55 [place] # (Auto) 0.7 K/mm3 (0.0-0.8) 03/06/21 06:55 Eos # (Auto) 0.2 K/mm3 (0.0-0.4) 03/06/21 06:55 Baso # (Auto) 0.1 K/mm3 (0.0-0.1) 03/06/21 06:55 Seg Neutrophils % 70.1 % (40.0-70.0) H 03/06/21 06:55 Seg Neutrophils # 6.5 K/mm3 (1.8-7.7) 03/06/21 06:55 Sodium 138 mmol/L (137-145) 03/06/21 06:55 Potassium 4.1 mmol/L (3.6-5.0) 03/06/21 06:55 Chloride 101.5 mmol/L (98-107) 03/06/21 06:55 Carbon Dioxide 25 mmol/L (22-30) 03/06/21 06:55 Anion Gap 16 mmol/L 03/06/21 06:55 BUN 14 mg/dL (9-20) 03/06/21 06:55 Creatinine 0.7 mg/dL (0.8-1.3) L 03/06/21 06:55 Estimated GFR > 60 ml/min 03/06/21 06:55 BUN/Creatinine Ratio 20 % 03/06/21 06:55 Glucose 90 mg/dL (75-100) 03/06/21 06:55 Hemoglobin A1c 6.0 % (4-6) 03/06/21 06:55 Calcium 9.1 mg/dL (8.4-10.2) 03/06/21 06:55 Total Bilirubin 0.50 mg/dL (0.1-1.2) 03/06/21 06:55 AST 23 units/L (5-40) 03/06/21 06:55 ALT 12 units/L (7-56) 03/06/21 06:55 Alkaline Phosphatase < 5 units/L (35-129) L 03/06/21 06:55 Total Protein 6.7 g/dL (6.3-8.2) 03/06/21 06:55 Albumin 3.7 g/dL (3.9-5) L 03/06/21 06:55 Albumin/Globulin Ratio 1.2 % 03/06/21 06:55 Triglycerides 108 mg/dL (2-149) 03/06/21 06:55 Cholesterol 129 mg/dL (50-199) 03/06/21 06:55 LDL Cholesterol Direct 72 mg/dL (50-130) 03/06/21 06:55 HDL Cholesterol 45 mg/dL (40-59) 03/06/21 06:55 Cholesterol/HDL Ratio 2.86 % 03/06/21 06:55 TSH 0.951 mlU/mL (0.270-4.200) 03/06/21 06:55 Hepatitis A IgM Ab Non-reactive (NonReactive) 03/06/21 06:55 Hep Bs Antigen Non-reactive (Negative) 03/06/21 06:55 Hep B Core IgM Ab Non-reactive (NonReactive) 03/06/21 06:55 Hepatitis C Antibody Non-reactive (NonReactive) 03/06/21 06:55 Last Vital Signs Temp 97.6 F 03/10/21 19:38 Pulse 91 H 03/10/21 19:38 Resp 18 03/10/21 19:38 BP 121/71 03/10/21 19:38 Pulse Ox 100 03/10/21 19:38
--- NOTE | 2021-03-11 08:20 | Discharge Summary ---
Providers - Providers Date of Admission: 03/05/21 21:14 Date of discharge: 03/11/21 Attending physician: JONO COREA MD 03/05/21 16:21 Consult to Physician [CONS] Routine Comment: Consulting Provider: ORLANDO WILBURN Physician Instructions: Reason For Exam: manage medical conditions Primary care physician: COVER MAKER Hospitalization Reason for admission: Psychosis Admitting Diagnosis: F20.0 - PARANOID SCHIZOPHRENIA Condition: Stable Hospital course: The patient was provided inpatient psychiatric treatment with safe and supportive environment, group/individual therapy, psychiatric medication, medication adjustment, adverse effect monitor, medical evaluation, medical chayo atment, social service assessment, social support meeting, placement assessment and psycho-education. The patients mood, cognition, behavior, motivation, compliance to treatment and appreciation on family/social support are improved and stabilized. At the time of discharge, the patient had no suicidal ideas, no homicidal ideas, no aggressive thoughts, no endangering behavior and no debilitating adverse effects. The patient agreed on the treatment plan, understood the risk, benefit, alternative treatment, potential consequence of no treatment, and gave informed consent. 03/07/2021: I interviewed the patient this morning. Medical records reviewed and patient's progress was discussed with unit staff. Nursing staff reports that patient " Last evening the patient presented as psychotic. He would yell loudly and hold his arms and hands up into the air. He would be talking to himself. TRANSLATOR DEAF was called and pt was given one time Ativan 1 mg po. It assisted pt in calming further. He denies si/hi. His appetite is good. Pt would at times pound on the diaz with his fists but was never aggressive to anyone else. Overnight patient rested quietly. He slept 8 hours. Will continue to monitor patient for safety." In my interview with the patient this morning, the patient was seen in the activity room eating breakfast. He reports mood as "Alright". Appetite is good. Sleep last night was good. The patient denies any current suicidal/homicidal ideation and denies hallucination. No changes made to treatment plan today. 03/08/2021: The patient was seen in the activity room. Per nurse: "Patient with hyperactive behaviors responding to internal stimuli by yelling banging on wall in room, PRN Ativan given, medication was effective, patent rested for during the night, will continue to monitor." In my interview with the patient, he is calm and reports doing fine. He states sleep and appetite as good. He denies any current suicidal/homicidal thoughts and denies hallucinations. No changes to the treatment plan today. 03/09/2021: The patient was seen eating breakfast in the activity room. He reports mood as "good" He reports sleep and appetite as good. The patient denies any current suicidal ideation and denies hallucinations. Per nurse " pt spent last evening in activity room watching television, pt is alert and oriented x3, disorganized thought process, cooperative, able to make needs known, responds to internal stimuli, observed talking to himself, he is medication compliance, ativan 1mg po given for mild agitation, pt was pacing the hallway with anxious look, good appetite, slept for approximately 8hrs, no distress noted, will continue to monitor for safety." Changes Made today: Start Depakote Dr 500mg po TID; Start Vistaril 25mg po TID. 03/10/2021: The patient was seen this morning in his room. He reports doing well. When asked about his behavioral issues, he states that he has mood swings and that he gets frustrated and angry thinking about the deaths in his family. He states he is receptive to attending psychotherapy post discharge. The patient reports sleep and appetite as good. He denies any current suicidal/homicidal ideation and denies hallucinations. No changes made today. 03/11/2021: The patient was seen eating breakfast in the activity room. He reports doing well. States sleep and appetite as good. He denies any current suicidal/ homicidal ideation and denies hallucinations. Per nurse, "pt is c omplaint with medication, continues to respond loudly to internal stimuli, not aggressive, good appetite, slept for 8hrs, no distress noted, will continue to monitor for safety." No changes made today Disposition: DC-01 TO HOME OR SELFCARE Allergies/Adverse Reactions: Allergies No Known Allergies Allergy (Verified 03/06/21 00:10) Vital Signs: Last Vital Signs Temp 97.6 F 03/10/21 19:38 Pulse 91 H 03/10/21 19:38 Resp 18 03/10/21 19:38 BP 121/71 03/10/21 19:38 Pulse Ox 100 03/10/21 19:38 Last Lab: Laboratory Last Values WBC 9.2 K/mm3 (4.5-11.0) 03/06/21 06:55 RBC 4.66 M/mm3 (3.65-5.03) 03/06/21 06:55 Hgb 14.4 gm/dl (11.8-15.2) 03/06/21 06:55 Hct 42.8 % (35.5-45.6) 03/06/21 06:55 MCV 92 fl (84-94) 03/06/21 06:55 MCH 31 pg (28-32) 03/06/21 06:55 MCHC 34 % (32-34) 03/06/21 06:55 RDW 15.2 % (13.2-15.2) 03/06/21 06:55 Plt Count 332 K/mm3 (140-440) 03/06/21 06:55 Lymph % (Auto) 19.7 % (13.4-35.0) 03/06/21 06:55 [place] % (Auto) 7.5 % (0.0-7.3) H 03/06/21 06:55 Eos % (Auto) 2.1 % (0.0-4.3) 03/06/21 06:55 Baso % (Auto) 0.6 % (0.0-1.8) 03/06/21 06:55 Lymph # (Auto) 1.8 K/mm3 (1.2-5.4) 03/06/21 06:55 [place] # (Auto) 0.7 K/mm3 (0.0-0.8) 03/06/21 06:55 Eos # (Auto) 0.2 K/mm3 (0.0-0.4) 03/06/21 06:55 Baso # (Auto) 0.1 K/mm3 (0.0-0.1) 03/06/21 06:55 Seg Neutrophils % 70.1 % (40.0-70.0) H 03/06/21 06:55 Seg Neutrophils # 6.5 K/mm3 (1.8-7.7) 03/06/21 06:55 Sodium 138 mmol/L (137-145) 03/06/21 06:55 Potassium 4.1 mmol/L (3.6-5.0) 03/06/21 06:55 Chloride 101.5 mmol/L (98-107) 03/06/21 06:55 Carbon Dioxide 25 mmol/L (22-30) 03/06/21 06:55 Anion Gap 16 mmol/L 03/06/21 06:55 BUN 14 mg/dL (9-20) 03/06/21 06:55 Creatinine 0.7 mg/dL (0.8-1.3) L 03/06/21 06:55 Estimated GFR > 60 ml/min 03/06/21 06:55 BUN/Creatinine Ratio 20 % 03/06/21 06:55 Glucose 90 mg/dL (75-100) 03/06/21 06:55 Hemoglobin A1c 6.0 % (4-6) 03/06/21 06:55 Calcium 9.1 mg/dL (8.4-10.2) 03/06/21 06:55 Total Bilirubin 0.50 mg/dL (0.1-1.2) 03/06/21 06:55 AST 23 units/L (5-40) 03/06/21 06:55 ALT 12 units/L (7-56) 03/06/21 06:55 Alkaline Phosphatase < 5 units/L (35-129) L 03/06/21 06:55 Total Protein 6.7 g/dL (6.3-8.2) 03/06/21 06:55 Albumin 3.7 g/dL (3.9-5) L 03/06/21 06:55 Albumin/Globulin Ratio 1.2 % 03/06/21 06:55 Triglycerides 108 mg/dL (2-149) 03/06/21 06:55 Cholesterol 129 mg/dL (50-199) 03/06/21 06:55 LDL Cholesterol Direct 72 mg/dL (50-130) 03/06/21 06:55 HDL Cholesterol 45 mg/dL (40-59) 03/06/21 06:55 Cholesterol/HDL Ratio 2.86 % 03/06/21 06:55 TSH 0.951 mlU/mL (0.270-4.200) 03/06/21 06:55 Hepatitis A IgM Ab Non-reactive (NonReactive) 03/06/21 06:55 Hep Bs Antigen Non-reactive (Negative) 03/06/21 06:55 Hep B Core IgM Ab Non-reactive (NonReactive) 03/06/21 06:55 Hepatitis C Antibody Non-reactive (NonReactive) 03/06/21 06:55 Core Measure Documentation - Palliative Care Palliative Care/ Comfort Measures: Not Applicable - Core Measures Any of the following diagnoses?: none (.) Exam - Constitutional Vitals: Temp Pulse Resp BP Pulse Ox 97.6 F 91 H 18 121/71 100 03/10/21 19:38 03/10/21 19:38 03/10/21 19:38 03/10/21 19:38 03/10/21 19:38 General appearance: Present: no acute distress - Psychiatric Psychiatric: appropriate mood/affect, cooperative Plan Activity: advance as tolerated Weight Bearing Status: Weight Bear as Tolerated Diet: regular Care Plan Goals: Maintain good and stable mental health. Plan of Treatment: The patient should be compliant with medications, not to use drugs and not to drink alcohol.The patient understands that if suicidal ideas, homicidal ideas, or any endangering thoughts arise, the patient should immediately seek for emergent assistance including but not limited to crisis hot line and emergency room. Follow up with outpatient Psychiatrist and PCP within 7 - 14 days of discharge. Follow up with: PRIMARY CARE, [Primary Care Provider] - 7 Days Prescriptions: traZODone [Desyrel] 50 mg PO QHS 30 Days #[address] [Depakote Dr] 500 mg PO TID 30 Days #90 tablet hydrOXYzine PAMOATE [Vistaril] 50 mg PO TID 30 Days #90 capsule OLANzapine [Zyprexa] 10 mg PO HS 30 Days #30 tablet
[2021-03-11] MEDS: DIVALPROEX DR 500 MG TAB PO SCH (08:36)
[2021-03-11 10:25] VITALS: BP 113/69
--- NOTE | 2021-04-28 12:29 | Progress Note ---
Assessment and Plan - Patient Problems (1) Depression Status: Acute (2) Generalized anxiety disorder Status: Acute History Interval history: 45 YO Male with JANNA, Schizophrenia admitted to [facility] for psychiatric stabilization. Patient seen and evaluated in his room. No reported nursing events. Hospitalist Physical - Constitutional Vitals: Temp Pulse Resp BP Pulse Ox 97.3 F L 91 H 18 113/69 100 03/11/21 10:00 03/11/21 10:00 03/11/21 10:00 03/11/21 10:00 03/11/21 10:00 General appearance: Present: no acute distress, well-nourished - EENT Eyes: Present: PERRL ENT: hearing intact - Neck Neck: Present: supple Results - Labs CBC & Chem 7: 03/06/21 06:55 03/06/21 06:55 Labs: Laboratory Last Values WBC 9.2 K/mm3 (4.5-11.0) 03/06/21 06:55 RBC 4.66 M/mm3 (3.65-5.03) 03/06/21 06:55 Hgb 14.4 gm/dl (11.8-15.2) 03/06/21 06:55 Hct 42.8 % (35.5-45.6) 03/06/21 06:55 MCV 92 fl (84-94) 03/06/21 06:55 MCH 31 pg (28-32) 03/06/21 06:55 MCHC 34 % (32-34) 03/06/21 06:55 RDW 15.2 % (13.2-15.2) 03/06/21 06:55 Plt Count 332 K/mm3 (140-440) 03/06/21 06:55 Lymph % (Auto) 19.7 % (13.4-35.0) 03/06/21 06:55 [place] % (Auto) 7.5 % (0.0-7.3) H 03/06/21 06:55 Eos % (Auto) 2.1 % (0.0-4.3) 03/06/21 06:55 Baso % (Auto) 0.6 % (0.0-1.8) 03/06/21 06:55 Lymph # (Auto) 1.8 K/mm3 (1.2-5.4) 03/06/21 06:55 [place] # (Auto) 0.7 K/mm3 (0.0-0.8) 03/06/21 06:55 Eos # (Auto) 0.2 K/mm3 (0.0-0.4) 03/06/21 06:55 Baso # (Auto) 0.1 K/mm3 (0.0-0.1) 03/06/21 06:55 Seg Neutrophils % 70.1 % (40.0-70.0) H 03/06/21 06:55 Seg Neutrophils # 6.5 K/mm3 (1.8-7.7) 03/06/21 06:55 Sodium 138 mmol/L (137-145) 03/06/21 06:55 Potassium 4.1 mmol/L (3.6-5.0) 03/06/21 06:55 Chloride 101.5 mmol/L (98-107) 03/06/21 06:55 Carbon Dioxide 25 mmol/L (22-30) 03/06/21 06:55 Anion Gap 16 mmol/L 03/06/21 06:55 BUN 14 mg/dL (9-20) 03/06/21 06:55 Creatinine 0.7 mg/dL (0.8-1.3) L 03/06/21 06:55 Estimated GFR > 60 ml/min 03/06/21 06:55 BUN/Creatinine Ratio 20 % 03/06/21 06:55 Glucose 90 mg/dL (75-100) 03/06/21 06:55 Hemoglobin A1c 6.0 % (4-6) 03/06/21 06:55 Calcium 9.1 mg/dL (8.4-10.2) 03/06/21 06:55 Total Bilirubin 0.50 mg/dL (0.1-1.2) 03/06/21 06:55 AST 23 units/L (5-40) 03/06/21 06:55 ALT 12 units/L (7-56) 03/06/21 06:55 Alkaline Phosphatase < 5 units/L (35-129) L 03/06/21 06:55 Total Protein 6.7 g/dL (6.3-8.2) 03/06/21 06:55 Albumin 3.7 g/dL (3.9-5) L 03/06/21 06:55 Albumin/Globulin Ratio 1.2 % 03/06/21 06:55 Triglycerides 108 mg/dL (2-149) 03/06/21 06:55 Cholesterol 129 mg/dL (50-199) 03/06/21 06:55 LDL Cholesterol Direct 72 mg/dL (50-130) 03/06/21 06:55 HDL Cholesterol 45 mg/dL (40-59) 03/06/21 06:55 Cholesterol/HDL Ratio 2.86 % 03/06/21 06:55 TSH 0.951 mlU/mL (0.270-4.200) 03/06/21 06:55 Hepatitis A IgM Ab Non-reactive (NonReactive) 03/06/21 06:55 Hep Bs Antigen Non-reactive (Negative) 03/06/21 06:55 Hep B Core IgM Ab Non-reactive (NonReactive) 03/06/21 06:55 Hepatitis C Antibody Non-reactive (NonReactive) 03/06/21 06:55 Buck/IV: Voiding Method Toilet Nutrition/Malnutrition Assess - Dietary Evaluation Nutrition/Malnutrition Findings: Nutrition Notes Start: 03/11/21 07:37 Freq: Status: Discharge Protocol: Document 03/11/21 07:37 (Rec: 03/11/21 07:37 [email or web address]) Nutrition Notes Need for Assessment generated from: LOS Initial or Follow up Brief Note Subjective/Other Information Screen for LOS. Pt eating 100% of meals. Nutrition Intervention Revisit per MD consult or patient Sign Off request:
== END 2021-03-11 13:00 | disposition home or self-care (01) | DRG 885 ==
LOC: 3A 13:05 → UNDOADMIN 13:05 → 5A 21:14
PROVIDERS: ADMIT Psychiatry & Neurology Psychiatry; ATTEND Psychiatry & Neurology Psychiatry
DX: F20.0 Paranoid schizophrenia (principal); F41.1 Generalized anxiety disorder; Z79.899 Other long term (current) drug therapy
CPT/HCPCS: 36415; 80053; 80061; 80074; 83036; 84443; 85025; G0378; J3486; Q0177